=== PATIENT | female | born 1960 | race Caucasian/White ===

== ENCOUNTER → 2016-12-30 | Outpatient (CLI) | payer OTHER ==
[2016-12-30 14:42] LABS: HEMOGLOBIN 14.5 gm/dl (12.3-15.3); RED BLOOD COUNT 4.52 M/UL (4.00-5.10)
[2016-12-30 15:11] LABS: BUN/CREATININE RATIO 9 (0-10)
== END ==
LOC: RAD 14:14
PROVIDERS: Internal Medicine Nephrology
DX: Z00.00 Encounter for general adult medical examination without abnormal findings (principal); F17.200 Nicotine dependence, unspecified, uncomplicated; M47.812 Spondylosis without myelopathy or radiculopathy, cervical region; I10 Essential (primary) hypertension; E78.5 Hyperlipidemia, unspecified
CPT/HCPCS: 72040; 80053; 80061; 85007; 85027

== ENCOUNTER → 2017-01-01 | Outpatient (CLI) | payer OTHER | LOC: EXRD 10:07 | DX: M25.562 Pain in left knee (principal) | CPT/HCPCS: 73560 ==

== ENCOUNTER → 2017-02-07 | Outpatient (CLI) | payer OTHER | LOC: EMI 01-24 14:30 | DX: M54.2 Cervicalgia (principal); M47.812 Spondylosis without myelopathy or radiculopathy, cervical region | CPT/HCPCS: 72141 ==

== ENCOUNTER 2021-05-09 10:14 | Emergency (ER) | payer MEDICARE, OTHER ==
[2021-05-09 11:35] LABS: HEMOGLOBIN 14.6 gm/dl (12.3-15.3); RED BLOOD COUNT 4.59 M/UL (4.00-5.10); WHITE BLOOD COUNT 7.9 K/UL (4.5-11.0)
[2021-05-09 12:04] LABS: BUN/CREATININE RATIO 10 (0-10)
[2021-05-09] MEDS ORDERED: ZITHROMAX250 MG PO (12:32)
[2021-05-09] MEDS ORDERED: OMNICEF 300 MG300 MG PO (12:32)
== END 2021-05-09 13:07 | disposition home or self-care (01) ==
LOC: ER1 10:14
PROVIDERS: Physician Assistant
DX: J18.9 Pneumonia, unspecified organism (principal); I10 Essential (primary) hypertension; D72.829 Elevated white blood cell count, unspecified; F17.200 Nicotine dependence, unspecified, uncomplicated; Z90.49 Acquired absence of other specified parts of digestive tract
CPT/HCPCS: 71045; 80053; 82550; 82553; 83874; 84484; 85025; 93005; 99285

== ENCOUNTER → 2022-02-25 | Outpatient (CLI) | payer MEDICARE, OTHER ==
[~2022-02-25] MED LIST: OMNICEF 300 MG300 MG PO; ZITHROMAX250 MG PO
== END ==
LOC: KOH-I 12:49
DX: F17.210 Nicotine dependence, cigarettes, uncomplicated (principal)
CPT/HCPCS: 71271